=== PATIENT | male | born 1955 | race Caucasian/White ===

== ENCOUNTER 2017-04-15 18:17 | Emergency (ER) | payer SELFPAY ==
[~2017-04-15] VITALS: Ht 157.5 cm; Wt 75.0 kg
[2017-04-15 18:22] VITALS: Ht 157.5 cm; Wt 75.0 kg
[2017-04-15] MEDS ORDERED: SOD CHLORIDE 0.9% 1,000 ML IV STA (18:46)
[2017-04-15 19:36] LABS: BASOPHILS % 0.4 % (0.0-2.0); LYMPHOCYTES # 2.1 10^3/ul (0.8-2.9); LYMPHOCYTES % 24.6 % (15.0-51.0); MEAN CORPUSCULAR HEMOGLOBIN 27.7 pg (29.0-33.0); MEAN CORPUSCULAR HGB CONC 33.3 g/dl (32.0-37.0); MEAN CORPUSCULAR VOLUME 83.2 fl (82.0-101.0); MEAN PLATELET VOLUME 8.6 fl (7.4-10.4); MONOCYTE # 0.7 10^3/ul (0.3-0.9); MONOCYTES % 8.3 % (0.0-11.0); NEUTROPHIL # 5.7 10^3/ul (1.6-7.5); NEUTROPHILS % 66.6 % (39.0-77.0); PLATELET COUNT 256 10^3/UL (140-415); RED BLOOD COUNT 4.69 10^6/ul (4.70-6.10); RED CELL DISTRIBUTION WIDTH 14.2 % (11.5-14.5); WHITE BLOOD COUNT 8.5 10^3/ul (4.8-10.8)
--- NOTE | 2017-04-15 19:53 | RADRPT ---
PROCEDURE: Noncontrast CT Head. CLINICAL INDICATION: Altered mental status. Rule out bleed. TECHNIQUE: Noncontrast CT of the head was obtained. The administered radiation dose was CTDI vol = 45.01 mGy, DLP = 720.23 mGy-cm. One or more of the following dose reduction techniques were used: Au tomated exposure control, Adjustment of the mA and/or kV according to patient size, or Use of iterat rodolfo reconstruction technique. COMPARISON: There are no similar studies submitted for comparison. FINDINGS: There is no acute intracranial hemorrhage, midline shift, or mass effect. The cerebral flores-white ma tter differentiation appears preserved. No extra-axial collection is seen. There is mild to moderate diffuse cerebral volume loss with central predominance. There is scattered patchy low attenuation i n the periventricular, deep, and subcortical cerebral white matter, which is nonspecific but suggest rodolfo of moderate chronic microangiopathic change. Prominent confluent low attenuation in the bilatera l parietal alfonso radiata and centrum semiovale is nonspecific and atypical for chronic microangiopa thic change. There is no associated significant mass effect. Differential considerations are broad a nd include posterior reversible encephalopathy syndrome (PRES), hypoglycemic encephalopathy, and jarrett ious other inflammatory, metabolic, toxic and infectious etiologies. Consider MRI brain with contras t for further evaluation. The basal cisterns are preserved. The brainstem and cerebellum are grossly unremarkable, although suboptimally evaluated with CT secondary to beam-hardening artifact. There is mild intracranial calcific atherosclerotic disease. The visualized paranasal sinuses and ma stoid air cells are clear. No acute fracture or suspicious osseous lesion is identified. A 7 mm ring -shaped metallic density foreign body is seen within the left anterior frontal scalp (series 3, imag es 9, 10). IMPRESSION: 1. No acute intracranial hemorrhage, mass effect, extra-axial collection, or evidence of large vascu lar territory transcortical infarct. 2. Prominent confluent low attenuation in the bilateral parietal periventricular, deep, and subcorti danielle cerebral white matter in a distribution somewhat atypical for chronic microangiopathic change. D ifferential diagnosis is broad and includes: posterior reversible encephalopathy syndrome (PRES), hy poglycemic encephalopathy, and various inflammatory, metabolic, toxic and infectious etiologies. 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 3. Other patchy low attenuation scattered in the cerebral white matter, suggestive of moderate chron ic microangiopathic cerebral white matter change. 4. Mild intracranial calcific atherosclerotic disease. 5. Left anterior frontal scalp 7 mm metallic foreign body. Correlate clinically. Call report was made to Dr. Davidson at 19:48 on 04/15/2017. RPTAT: [facility] Physician Rhona Date Time Electronically viewed and signed by Susan Bowling Physician on 04/15/2017 19:53 RC/
[2017-04-15 19:58] LABS: ALANINE AMINOTRANSFERASE 53 IU/L (13-69); ALBUMIN 5.1 g/dl (3.3-4.9); ALKALINE PHOSPHATASE 116 IU/L (42-121); ANION GAP 25 (8-16); ASPARTATE AMINO TRANSFERASE 73 IU/L (15-46); BILIRUBIN,INDIRECT 0.6 mg/dl (0-1.1); BILIRUBIN,TOTAL 0.6 mg/dl (0.2-1.3); BLOOD UREA NITROGEN 10 mg/dl (7-20); CALCIUM 8.6 mg/dl (8.4-10.2); CARBON DIOXIDE 27 mmol/L (21-31); CHLORIDE 93 mmol/L (97-110); CREATININE 0.64 mg/dl (0.61-1.24); GLUCOSE 91 mg/dl (70-220); POTASSIUM 3.5 mmol/L (3.5-5.1); SODIUM 141 mmol/L (135-144); TOTAL PROTEIN 8.5 g/dl (6.1-8.1)
[2017-04-15 20:10] LABS: TROPONIN-I < 0.012 ng/ml (0.00-0.12)
--- NOTE | 2017-04-15 21:04 | RADRPT ---
PROCEDURE: XR Chest. CLINICAL INDICATION: Infiltrate. TECHNIQUE: Single frontal view of the chest. COMPARISON: None. FINDINGS: Cardiomegaly. Mild atelectasis at the left lung base. Slight atelectasis at the right lung base. The lungs are otherwise clear. No signs of pleural fluid or pneumothorax are seen. The osseous structur es and soft tissues are unremarkable. IMPRESSION: Cardiomegaly and mild atelectasis at the left lung base. RPTAT: [facility] Physician Sukhjinder Date Time Electronically viewed and signed by Physician Sukhjinder on 04/15/2017 21:04 RS/
--- NOTE | 2017-04-15 21:05 | ERD ---
ER Documentation Chief Complaint Chief Complaint etoh intoxication,found in bus asleep HPI 61-year-old patient has a history of alcohol abuse and has been drinking all day. There was no trauma, no recent fevers or chills, no vomiting or diarrhea, no complaints of chest pain or shortness of breath. Patient was transported here by EMS without further complications. ROS All systems reviewed and are negative except as per history of present illness. PMhx/Soc Alcohol abuse Hx Alcohol Use: Yes (HEAVY PER PT.) FmHx Family History: No diabetes Physical Exam Vitals Vital Signs Date Time Temp Pulse Resp B/P Pulse Ox O2 Delivery O2 Flow Rate FiO2 04/15/17 20:15 98.1 88 14 138/80 97 Room Air 04/15/17 18:22 98.1 78 18 128/78 99 Physical Exam GENERAL: Well-developed, well-nourished, appears dehydrated, intoxicated, alcohol on breath, afebrile HEENT: Dry mucous membranes, pink conjunctiva, no cervical spine tenderness or step-off deformities, no goiter, no jaundice or icterus, extraocular movements intact without pain. No submandibular induration, and no pharyngeal erythema NEURO: Eyes closed, lethargic, no focal deficits or facial asymmetry, ANO 1 CARDIAC: Tachycardic and regular, no murmurs rubs or gallops LUNGS: Clear bilaterally no wheezing crackles or stridor ABDOMEN: Soft nontender, no guarding, no rigidity, no rebound, no psoas sign no obturator sign. SKIN: Warm and dry to touch, no abrasions, contusions, or hematomas, no lacerations, no ecchymosis, no target lesions, and without ulcers EXTREMITIES: No clubbing cyanosis or edema, calves are bilaterally symmetrical, no Homans sign, no popliteal cord sign. Distal pulses equal and bilateral PSYCH: Normal affect without agitation or irritability Result Diagram: 04/15/17192404/15/171924 Results 24 hrs Laboratory Tests Test 04/15/17 19:25 White Blood Count 8.510^3/ul Red Blood Count 4.6910^6/ul Hemoglobin 13.0g/dl Hematocrit 39.0% Mean Corpuscular Volume 83.2fl Mean Corpuscular Hemoglobin 27.7pg Mean Corpuscular Hemoglobin Concent 33.3g/dl Red Cell Distribution Width 14.2% Platelet Count 23650^3/UL Mean Platelet Volume 8.6fl Neutrophils % 66.6% Lymphocytes % 24.6% Monocytes % 8.3% Eosinophils % 0.0% Basophils % 0.4% Nucleated Red Blood Cells % 0.0/100WBC Neutrophils # 5.710^3/ul Lymphocytes # 2.110^3/ul Monocytes # 0.710^3/ul Eosinophils # 0.010^3/ul Basophils # 0.010^3/ul Nucleated Red Blood Cells # 0.010^3/ul Sodium Level 141mmol/L Potassium Level 3.5mmol/L Chloride Level 93mmol/L Carbon Dioxide Level 27mmol/L Anion Gap 25 Blood Urea Nitrogen 10mg/dl Creatinine 0.64mg/dl Glucose Level 91mg/dl Calcium Level 8.6mg/dl Total Bilirubin 0.6mg/dl Direct Bilirubin 0.00mg/dl Indirect Bilirubin 0.6mg/dl Aspartate Amino Transf (AST/SGOT) 73IU/L Alanine Aminotransferase (ALT/SGPT) 53IU/L Alkaline Phosphatase 116IU/L Troponin I < 0.012ng/ml Total Protein 8.5g/dl Albumin 5.1g/dl Globulin 3.40g/dl Albumin/Globulin Ratio 1.50 Lipase 185U/L Ethyl Alcohol Level 370.0mg/dl Current Medications Medications (Trade) Dose Ordered Sig/Luiz Route PRN Reason Start Time Stop Time Status Last Admin Dose Admin Sodium Chloride (NS) 1,000 ml @ 2,000 mls/hr Q30M STAT IV 04/15/17 18:46 04/15/17 19:15 DC 04/15/17 20:01 Procedures/[facility] IV line was established patient was placed on director of cardiac cath lab rhythm strip revealed a sinus tachycardia at 100 bpm with upright P and T waves. Patient was afebrile CT scan of the brain was performed that revealed chronic changes no acute bleed mass or shift. Please refer to radiologist dictation for full report. EKG performed, read by me revealed a sinus tachycardia at 107 bpm, normal axis, narrow QRS complex, no concerning ST elevations or depressions noted. I administered 2 L normal saline intravenously for dehydration. CBC and electrolytes were unremarkable, liver function tests normal, troponin negative, ethanol level elevated at 370. Observation Note: Time: 6 hours Family Hx: No Hypertension Evaluation: Multiple bedside examinations revealed improving mental status and normal vital signs. Patient was asymptomatic and was able to tolerate p.o. and ambulate without difficulty. There was no evidence of cardiopulmonary decompensation or obvious alcohol withdrawal. Differential diagnoses considered, included but not limited to acute coronary syndrome, pulmonary embolism, aortic dissection, abdominal aortic aneurysm, sepsis, stroke, meningitis, encephalitis, pneumonia, appendicitis, cholecystitis , bowel obstruction, pyelonephritis, nephrolithiasis, cystitis, as well as metabolic, hematologic, and electrolyte abnormalities. As well as abscess, cellulitis, fractures, and dislocations. Patient feels much better at this time, and vital signs are normal, symptoms have improved. I did give strict instructions to return to the ED if symptoms continue or worsen, patient will otherwise follow-up with primary care physician. Patient understood instructions and agreed to plan. Disclaimer: Inadvertent spelling and grammatical errors are likely due to EHR/ dictation software use and do not reflect on the overall quality of patient care. Also, please note that the electronic time recorded on this note does not necessarily reflect the actual time of the patient encounter. Departure Diagnosis: Primary Impression: Alcoholic intoxication Complication of substance-induced condition: uncomplicated Qualified Code: F10.920 - Alcoholic intoxication without complication Additional Impressions: Alcoholism Dehydration Condition: Good Patient Instructions: Alcohol Intoxication MIGUEL LOPEZ MD Apr 15, 2017 21:05
[2017-04-16 03:47] VITALS: TEMP 97.2
[2017-04-16 05:22] VITALS: BP 125/70; PULSE 89; RESP 20
== END 2017-04-16 05:24 | disposition home or self-care (01) ==
LOC: E/R 18:17
DX: F10.920 Alcohol use, unspecified with intoxication, uncomplicated (principal); E86.0 Dehydration; R51 Headache
CPT/HCPCS: 70450; 71010; 80053; 80306; 83690; 84484; 85025; 93005; 99285; J7030